=== PATIENT | male | born 1960 | race American Indian/Alaskan Native ===

== ENCOUNTER 2016-11-21 06:00 | Emergency (ER) | payer SELFPAY ==
[2016-11-21] MEDS ORDERED: LORazepam INJ* 2 MG/ML 1 ML VIAL IV ONE (08:08)
[2016-11-21] MEDS ORDERED: HYDROmorphone* 1 MG/ML 1 ML SYR IV ONE (08:08)
[2016-11-21] MEDS ORDERED: Ondansetron INJ* 2 MG/ML VIAL IV ONE (08:08)
[2016-11-21 10:52] VITALS: BP 138/73
--- NOTE | 2016-11-21 11:30 | ED ---
Juan F Hall SooYoung, scribed for Ej Beckett MD on 11/21/16 at 0802 . Back Pain - HPI Summary HPI Summary: A 56 y/o M CAMILLE presents to ED with c/o back injury when he fell at work this AM. Pain at bilat lower back, radiating down L leg and to L groin. He states this pain feels very different from his baseline pain. Today's pain is much more intense, so bad he "can't think straight". Denies incontinence. Unable to bear weight. Pt goes to the pain clinic, sees Dr. Alvarez. Pert PMHx: multiple back surgeries. - History of Current Complaint Chief Complaint: EDBackInjuryPain Stated Complaint: BACK PAIN Time Seen by Provider: 11/21/16 07:45 Hx Obtained From: Patient Onset/Duration: Sudden Onset, Lasting Hours, Still Present Timing: Constant Back Pain Location: Is Diffuse - bilat L back, Radiates To - L leg and L groin Severity Currently: Severe Pain Intensity: 9 Pain Scale Used: 0-10 Numeric Associated Signs And Symptoms: Negative: Bladder Incontinence, Bowel Incontinence - Allergies/Home Medications Allergies/Adverse Reactions: Allergies Allergy/AdvReac Type Severity Reaction Status Date / Time No Known Allergies Allergy Verified 11/21/16 06:07 PMH/Surg Hx/FS Hx/Imm Hx Previously Healthy: No Endocrine/Hematology History: Denies: Hx Diabetes, Hx Thyroid Disease Cardiovascular History: Denies: Hx Hypertension Respiratory History: Denies: Hx Asthma, Hx Chronic Obstructive Pulmonary Disease (COPD) GI History: Denies: Hx Ulcer Musculoskeletal History: Reports: Hx Arthritis, Hx Back Problems - Surgical History Surgery Procedure, Year, and Place: 5 rods to back.s1-l5 Infectious Disease History: No Infectious Disease History: Reports: Hx Tuberculosis Denies: Hx Hepatitis, Hx Human Immunodeficiency Virus (HIV), Traveled Outside the [place] in Last 30 Days - Family History Known Family History: Positive: Unknown, Diabetes - mother - Social History Occupation: Employed Full-time Lives: With Family - roommates Alcohol Use: Weekly Alcohol Amount: 2 drinks 2-3x week Hx Substance Use: No Substance Use Type: Reports: None Substance Use Comment - Amount & Last Used: oxycontin Smoking Status (MU): Current Every Day Smoker Type: Cigarettes Amount Used/How Often: 1 PPD Have You Smoked in the Last Year: Yes Review of Systems Negative: incontinence Positive: Other - pos: back pain radiating down L leg and L groin All Other Systems Reviewed And Are Negative: Yes Physical Exam Triage Information Reviewed: Yes Vital Signs On Initial Exam: Initial Vitals Temp Pulse Resp BP Pulse Ox 99.6 F 90 18 141/81 99 11/21/16 06:03 11/21/16 06:03 11/21/16 06:03 11/21/16 06:03 11/21/16 06:03 Vital Signs Reviewed: Yes Appearance: Positive: Well-Appearing, No Pain Distress Skin: Positive: Warm, Skin Color Reflects Adequate Perfusion, Dry Head/Face: Positive: Normal Head/Face Inspection Eyes: Positive: Normal ENT: Positive: Normal ENT inspection Neck: Positive: Supple, Nontender Respiratory/Lung Sounds: Positive: Clear to Auscultation, Breath Sounds Present Cardiovascular: Positive: RRR Abdomen Description: Positive: Nontender, Soft Bowel Sounds: Positive: Present Musculoskeletal: Positive: Normal Neurological: Positive: Normal Psychiatric: Positive: Normal, Affect/Mood Appropriate Diagnostics - Vital Signs Vital Signs Temp Pulse Resp BP Pulse Ox 11/21/16 06:03 99.6 F 90 18 141/81 99 - Laboratory Lab Statement: Any lab studies that have been ordered have been reviewed, and results considered in the medical decision making process. Re-Evaluation - Re-Evaluation 1 Re-Evaluation Time: 10:16 Change: Improved Comment: Pt is walking around, feeling better. Back Pain Course/Dx - Course Course Of Treatment: Mr. Huitron got a lot better with narcotic pain meds and ativan as muscle relaxer here. He was up walking around and obviously neurolgically intact without C/O at D/C. - Diagnoses Provider Diagnoses: LOWER BACK SPRAIN Discharge - Discharge Plan Condition: Stable Disposition: HOME Patient Education Materials: Low Back Strain (ED) Forms: *Work Release Referrals: Donal Mendoza MD [Primary Care Provider] - Additional Instructions: Follow up with your primary care provider as needed. Return to the ED if you experience new or worsening symptoms. The documentation as recorded by the Juan F padilla SooYoung accurately reflects the service I personally performed and the decisions made by me, Ej Beckett MD.
== END 2016-11-21 10:52 | disposition home or self-care (01) ==
LOC: ED 06:00
DX: S33.5XXA Sprain of ligaments of lumbar spine, initial encounter (principal); W19.XXXA Unspecified fall, initial encounter; Y93.9 Activity, unspecified; Y92.9 Unspecified place or not applicable; Y99.9 Unspecified external cause status; F17.210 Nicotine dependence, cigarettes, uncomplicated
CPT/HCPCS: 96374; 96375; 99282; J1170; J2060; J2405